=== PATIENT | female | born 1950 | race Caucasian/White ===

== ENCOUNTER 2017-10-23 08:54 | Emergency (ER) | payer SELFPAY ==
[~2017-10-23] VITALS: Ht 157.5 cm; Wt 55.0 kg
[2017-10-23] MEDS ORDERED: LEVO137T3 PO (09:04)
[2017-10-23] MEDS ORDERED: LISI-170 PO (09:04)
[2017-10-23 10:24] LABS: ASPARTATE AMINO TRANSFERASE 13 U/L (15-37); BLOOD UREA NITROGEN 8 mg/dL (7-18)
[2017-10-23 10:43] LABS: HEMATOCRIT 37.2 % (34.6-47.8); HEMOGLOBIN 12.2 g/dL (11.7-16.4); WHITE BLOOD COUNT 10.6 x10^3/uL (3.4-10)
[2017-10-23] MEDS ORDERED: SODIUM CHLORIDE 0.9% 1,000ML IVBOLUS ONE (11:00)
[2017-10-23] MEDS ORDERED: SODIUM CHLORIDE FLUSH 10ML SYR IVF ONE (11:00)
[2017-10-23 11:09] LABS: ANISOCYTOSIS 2+; HYPOCHROMIA 1+
[2017-10-23 11:12] LABS: OVALOCYTES 1+
[2017-10-23 11:13] LABS: TARGET CELLS 1+
[2017-10-23 12:53] VITALS: BP 130/68
== END 2017-10-23 12:56 | disposition home or self-care (01) ==
LOC: ED 12:50
DX: B34.9 Viral infection, unspecified (principal); K59.00 Constipation, unspecified; I10 Essential (primary) hypertension
CPT/HCPCS: 36415; 74022; 80053; 81003; 83605; 85025; 87040; 93005; 96360; 99285; J7030